=== PATIENT | female | born 1965 | race Caucasian/White ===

== ENCOUNTER 2017-12-16 14:11 | Outpatient (CLI) | payer OTHER ==
[~2017-12-16 14:11] MED LIST: MACROBID 100 M100 MG PO; NEURONTIN600 MG; TRAMADOL HCL-AP1 TAB PO
== END 2017-12-16 14:46 | disposition home or self-care (01) ==
LOC: MAMO-SONO 14:11
DX: Z12.31 Encounter for screening mammogram for malignant neoplasm of breast (principal)

== ENCOUNTER 2020-03-08 14:44 | Outpatient (CLI) | payer OTHER | END 2020-03-08 15:26 | disposition home or self-care (01) | LOC: MAMO-SONO 14:44 | PROVIDERS: ATTEND Obstetrics & Gynecology | DX: Z12.31 Encounter for screening mammogram for malignant neoplasm of breast (principal); N60.11 Diffuse cystic mastopathy of right breast; N60.12 Diffuse cystic mastopathy of left breast ==

== ENCOUNTER 2021-04-19 13:37 | Outpatient (CLI) | payer OTHER | END 2021-04-19 13:58 | disposition home or self-care (01) | LOC: MAMO-SONO 13:37 | PROVIDERS: ATTEND Obstetrics & Gynecology | DX: R10.2 Pelvic and perineal pain (principal); N60.11 Diffuse cystic mastopathy of right breast; N60.12 Diffuse cystic mastopathy of left breast; Z12.31 Encounter for screening mammogram for malignant neoplasm of breast ==

== ENCOUNTER 2021-04-19 15:32 | Outpatient (CLI) | payer OTHER | END 2021-04-19 16:00 | disposition home or self-care (01) | LOC: NUCLEAR 15:32 | PROVIDERS: ATTEND Obstetrics & Gynecology | DX: M81.0 Age-related osteoporosis without current pathological fracture (principal) ==

== ENCOUNTER 2022-02-06 11:09 | Outpatient (CLI) | payer OTHER | END 2022-02-06 11:18 | disposition home or self-care (01) | LOC: RAD 11:09 | DX: J45.909 Unspecified asthma, uncomplicated (principal); Z01.89 Encounter for other specified special examinations ==

== ENCOUNTER 2024-03-03 13:24 | Outpatient (CLI) | payer OTHER | END 2024-03-03 13:26 | disposition home or self-care (01) | LOC: NUCLEAR 13:24 | PROVIDERS: ATTEND Obstetrics & Gynecology | DX: M81.0 Age-related osteoporosis without current pathological fracture (principal) ==

== ENCOUNTER 2024-03-03 16:12 | Outpatient (CLI) | payer OTHER | END 2024-03-03 16:26 | disposition home or self-care (01) | LOC: MAMO-SONO | PROVIDERS: ATTEND Obstetrics & Gynecology | DX: Z12.31 Encounter for screening mammogram for malignant neoplasm of breast (principal); R10.2 Pelvic and perineal pain ==

== ENCOUNTER 2024-06-30 07:13 | Outpatient (CLI) | payer OTHER | END 2024-06-30 07:25 | disposition home or self-care (01) | LOC: TOM 07:13 | PROVIDERS: ATTEND Internal Medicine Gastroenterology | DX: R10.9 Unspecified abdominal pain (principal); R63.4 Abnormal weight loss; R19.4 Change in bowel habit ==

== ENCOUNTER 2024-09-08 12:03 | Outpatient (CLI) | payer OTHER | END 2024-09-08 12:04 | disposition home or self-care (01) | LOC: NUCLEAR 12:03 | DX: N17.9 Acute kidney failure, unspecified (principal); N13.9 Obstructive and reflux uropathy, unspecified ==